=== PATIENT | female | born 1945 | race Caucasian/White ===

== ENCOUNTER 2018-03-02 08:25 | Emergency (ER) | payer OTHER, MEDICAID ==
[2018-03-02 13:15] LABS: ADD MAN DIFF? NO
[2018-03-02 13:17] LABS: BASOPHILS % 0.5 % (0.0-2.0); EOSINOPHILS # 0.7 10^3/ul (0.0-0.5); EOSINOPHILS % 10.4 % (0.0-7.0); HEMATOCRIT 41.8 % (37.0-47.0); HEMOGLOBIN 13.8 g/dl (12.0-16.0); LYMPHOCYTES # 3.1 10^3/ul (0.8-2.9); LYMPHOCYTES % 47.2 % (15.0-51.0); MEAN CORPUSCULAR HEMOGLOBIN 30.1 pg (29.0-33.0); MEAN CORPUSCULAR VOLUME 91.3 fl (82.0-101.0); MEAN PLATELET VOLUME 10.1 fl (7.4-10.4); MONOCYTE # 0.4 10^3/ul (0.3-0.9); MONOCYTES % 6.4 % (0.0-11.0); NEUTROPHIL # 2.3 10^3/ul (1.6-7.5); NEUTROPHILS % 35.3 % (39.0-77.0); PLATELET COUNT 193 10^3/UL (140-415); RED BLOOD COUNT 4.58 10^6/ul (4.20-5.40); RED CELL DISTRIBUTION WIDTH 12.5 % (11.5-14.5)
[2018-03-02 13:17] LABS: WHITE BLOOD COUNT 6.5 10^3/ul (4.8-10.8)
[2018-03-02 13:33] LABS: ALANINE AMINOTRANSFERASE 34 IU/L (13-69); ALBUMIN 4.5 g/dl (3.3-4.9); ALBUMIN/GLOBULIN RATIO 1.12; ALKALINE PHOSPHATASE 127 IU/L (42-121); ANION GAP 16 (8-16); ASPARTATE AMINO TRANSFERASE 21 IU/L (15-46); BILIRUBIN,INDIRECT 0.4 mg/dl (0-1.1); BILIRUBIN,TOTAL 0.4 mg/dl (0.2-1.3); BLOOD UREA NITROGEN 10 mg/dl (7-20); CALCIUM 9.6 mg/dl (8.4-10.2); CARBON DIOXIDE 26 mmol/L (21-31); CHLORIDE 109 mmol/L (97-110); CREATININE 0.57 mg/dl (0.44-1.00); GLUCOSE 89 mg/dl (70-220); LIPASE 82 U/L (23-300); POTASSIUM 3.9 mmol/L (3.5-5.1); SODIUM 147 mmol/L (135-144); TOTAL PROTEIN 8.5 g/dl (6.1-8.1)
[2018-03-02 13:35] LABS: ADD UMIC NO; UR ASCORBIC ACID NEGATIVE (NEGATIVE); UR BILIRUBIN (Dip) NEGATIVE (NEGATIVE); UR BLOOD (Dip) NEGATIVE (NEGATIVE); UR CLARITY CLEAR (CLEAR); UR COLOR YELLOW (YELLOW); UR GLUCOSE (Dip) NEGATIVE (NEGATIVE); UR KETONES (Dip) NEGATIVE (NEGATIVE); UR LEUKOCYTE ESTERASE (Dip) NEGATIVE Leu/ul (NEGATIVE); UR NITRITE (Dip) NEGATIVE (NEGATIVE); UR SPECIFIC GRAVITY (Dip) 1.013 (1.003-1.030); UR TOTAL PROTEIN (Dip) NEGATIVE (NEGATIVE); UR UROBILINOGEN (Dip) NEGATIVE (NEGATIVE)
[2018-03-02 13:36] LABS: INR 0.91; PROTIME 12.3 Sec (11.9-14.9)
[2018-03-02] MEDS: NA PHOSPHATE/BIPHOS 133 ML ENEMA PR (13:50)
[2018-03-02 14:25] LABS: OCCULT BLOOD STOOL NEGATIVE (NEGATIVE)
== END 2018-03-02 16:30 | disposition home or self-care (01) ==
LOC: E/R 08:25
DX: K59.00 Constipation, unspecified (principal); I10 Essential (primary) hypertension; I25.10 Atherosclerotic heart disease of native coronary artery without angina pectoris
CPT/HCPCS: 36415; 74018; 80053; 81003; 82270; 83690; 85025; 85610; 99284-25

== ENCOUNTER 2019-08-10 05:39 | Inpatient (IN) | payer OTHER ==
[2019-08-10] MEDS: LANSOPRAZOLE 30 MG CAP PO (06:38)
[2019-08-10] MEDS: DEXAMETHASONE 4 MG/ML 1 ML INJ IV (06:38)
[2019-08-10] MEDS: LACTATED RINGER'S 1,000 ML IV ×2 (06:38→18:08)
[2019-08-10] MEDS: ACETAMINOPHEN 500 MG TAB PO (06:39)
[2019-08-10] MEDS: ONDANSETRON 4 MG INJ IV ×4 (06:39→22:47)
[2019-08-10] MEDS: oxyCODONE (CR) 10 MG TAB [oxyCONTIN] PO (06:39)
[2019-08-10] MEDS ORDERED: TRANEXAMIC ACID 1GM/100ML(PMX) 100 ML ×2 (06:58)
[2019-08-10 07:14] LABS: ALANINE AMINOTRANSFERASE 23 IU/L (13-69); ALBUMIN/GLOBULIN RATIO 1.29; ALKALINE PHOSPHATASE 102 IU/L (42-121); ANION GAP 7 (5-13); ASPARTATE AMINO TRANSFERASE 26 IU/L (15-46); BILIRUBIN,INDIRECT 0.3 mg/dl (0-1.1); BILIRUBIN,TOTAL 0.3 mg/dl (0.2-1.3); BLOOD UREA NITROGEN 9 mg/dl (7-20); CALCIUM 9.4 mg/dl (8.4-10.2); CARBON DIOXIDE 26 mmol/L (21-31); CHLORIDE 111 mmol/L (97-110); CREATININE 0.55 mg/dl (0.44-1.00); GLUCOSE 108 mg/dl (70-220); POTASSIUM 4.4 mmol/L (3.5-5.1); SODIUM 144 mmol/L (135-144); TOTAL PROTEIN 7.1 g/dl (6.1-8.1)
[2019-08-10] MEDS ORDERED: CEFAZOLIN 1 GM INJ ×2 (07:23→08:05)
[2019-08-10] MEDS ORDERED: ROPIVACAINE 0.5 % 30 ML VIAL (07:23)
[2019-08-10] MEDS ORDERED: morphine SULFATE/PF (10 MG/10 ML) INJ (07:23)
[2019-08-10] MEDS ORDERED: MIDAZOLAM 1 MG/ML 2 ML INJ (07:23)
[2019-08-10] MEDS: CEFAZOLIN 1 GM/50 ML (PMX) 50 ML IVPB (07:45)
[2019-08-10] MEDS ORDERED: SUCCINYLCHOLINE CHLORIDE 100 MG/5 ML SYG IV (08:05)
[2019-08-10] MEDS ORDERED: METOCLOPRAMIDE 10 MG INJ (08:05)
[2019-08-10] MEDS ORDERED: ONDANSETRON 4 MG INJ (08:05)
[2019-08-10] MEDS ORDERED: PROPOFOL 100 ML (08:05)
[2019-08-10] MEDS ORDERED: DEXAMETHASONE 4 MG/ML 5 ML INJ (08:06)
[2019-08-10] MEDS: TRANEXAMIC ACID 1GM/100ML(PMX) 100 ML PRE-OP X1 IVPB (08:06)
[2019-08-10] MEDS: BACITRACIN 50000 UNITS INJ IRR (08:17)
[2019-08-10] MEDS: POLYMYXIN B 500000 UNIT INJ (08:17)
[2019-08-10] MEDS: TRANEXAMIC ACID 1GM/100ML(PMX) 100 ML INTRA-OP X1 IVPB ×2 (08:19→08:56)
[2019-08-10] MEDS ORDERED: EPHEDrine 25 MG/5 ML SYG (08:42)
[2019-08-10] MEDS ORDERED: morphine 2 MG INJ IV ×2 (09:00)
[2019-08-10] MEDS ORDERED: NALBUPHINE HCL (10 MG/1 ML) INJ IV (09:00)
[2019-08-10] MEDS ORDERED: EPHEDrine 25 MG/5 ML SYG IV (09:00)
[2019-08-10] MEDS ORDERED: HYDROCODONE/APAP (5/325) TAB PO (09:00)
[2019-08-10] MEDS ORDERED: hydrALAzine 20 MG INJ IV (09:00)
[2019-08-10] MEDS ORDERED: METOCLOPRAMIDE 10 MG INJ IV (09:00)
[2019-08-10] MEDS ORDERED: MEPERIDINE 25 MG INJ IV (09:00)
[2019-08-10] MEDS ORDERED: ACETAMINOPHEN 500 MG TAB PO (09:00)
[2019-08-10] MEDS ORDERED: HYDROmorphONE 1 MG/5 ML IV SYRINGE IV ×2 (09:00)
[2019-08-10] MEDS ORDERED: NALOXONE (0.4 MG/ML) INJ IV ×2 (09:00→10:00)
[2019-08-10] MEDS ORDERED: FENTAnyl 50 MCG/ML VIAL IV ×2 (09:00)
[2019-08-10] MEDS ORDERED: LABETALOL HCL 20MG INJ IV (09:00)
[2019-08-10] MEDS ORDERED: OXYCODONE/ACETAMINOPHEN (5/325) TAB PO (09:00)
[2019-08-10] MEDS ORDERED: DIPHENHYDRAMINE 50 MG INJ IV ×2 (09:00)
[2019-08-10] MEDS ORDERED: ONDANSETRON 4 MG INJ IV ×2 (09:00)
[2019-08-10] MEDS ORDERED: HYDROmorphONE 0.5 MG/0.5 ML SYG IV ×2 (09:00)
[2019-08-10] MEDS ORDERED: PHENYLephrine (100 MCG/ML) 10ML SYG (09:23)
[2019-08-10] MEDS: HETASTARCH 6% NACL 500 ML (09:40)
[2019-08-10] MEDS: PAIN COCKTAIL VANCO INJ (09:42)
[2019-08-10] MEDS ORDERED: BISACODYL 10 MG SUPP PR (10:00)
[2019-08-10] MEDS ORDERED: NA PHOSPHATE/BIPHOS 133 ML ENEMA PR (10:00)
[2019-08-10] MEDS ORDERED: NACL 0.9% 3 ML SYG IV (10:00)
[2019-08-10] MEDS ORDERED: MAGNESIUM HYDROXIDE 30ML CUP PO (10:00)
[2019-08-10] MEDS: DOCUSATE SODIUM 100 MG CAP PO (10:50)
[2019-08-10] MEDS: CEFAZOLIN 2 GM/50 ML (PMX) 50 ML IVPB ×2 (10:50→18:38)
[2019-08-10] MEDS: GABAPENTIN 100 MG CAP PO ×2 (13:30→22:01)
[2019-08-10] MEDS: ATORVASTATIN 20 MG TAB PO (22:01)
[2019-08-11] MEDS: CEFAZOLIN 2 GM/50 ML (PMX) 50 ML IVPB (02:18)
[2019-08-11] MEDS: ONDANSETRON 4 MG INJ IV (04:12)
[2019-08-11 05:13] LABS: ADD MAN DIFF? NO
[2019-08-11 05:15] LABS: HEMATOCRIT 31.2 % (37.0-47.0); HEMOGLOBIN 9.8 g/dl (12.0-16.0); LYMPHOCYTES % 10.5 % (15.0-51.0); MEAN CORPUSCULAR HEMOGLOBIN 29.7 pg (29.0-33.0); MEAN CORPUSCULAR HGB CONC 31.4 g/dl (32.0-37.0); MEAN CORPUSCULAR VOLUME 94.5 fl (82.0-101.0); MEAN PLATELET VOLUME 11.3 fl (7.4-10.4); MONOCYTE # 0.6 10^3/ul (0.3-0.9); MONOCYTES % 6.1 % (0.0-11.0); NEUTROPHIL # 7.8 10^3/ul (1.6-7.5); PLATELET COUNT 152 10^3/UL (140-415); RED CELL DISTRIBUTION WIDTH 13.2 % (11.5-14.5)
[2019-08-11 05:15] LABS: WHITE BLOOD COUNT 9.4 10^3/ul (4.8-10.8)
[2019-08-11 05:32] LABS: CHOLESTEROL 145 mg/dl (100-200)
[2019-08-11 05:32] LABS: CHOL/HDL RATIO 2.9 RATIO; HDL CHOLESTEROL 50 mg/dl (33-92); LDL CHOLESTEROL,CALCULATED 74 mg/dl; TRIGLYCERIDES 105 mg/dl (0-149)
[2019-08-11 05:36] LABS: ANION GAP 4 (5-13); BLOOD UREA NITROGEN 14 mg/dl (7-20); CALCIUM 8.4 mg/dl (8.4-10.2); CARBON DIOXIDE 26 mmol/L (21-31); CHLORIDE 109 mmol/L (97-110); CREATININE 0.57 mg/dl (0.44-1.00); GLUCOSE 143 mg/dl (70-220); POTASSIUM 4.3 mmol/L (3.5-5.1); SODIUM 139 mmol/L (135-144)
[2019-08-11 05:53] LABS: FREE THYROXINE INDEX (Calc) 2.46 ug/ml (0.65-3.89); T3 UPTAKE 35.2 % (23.5-40.5)
[2019-08-11] MEDS: LEVOTHYROXINE 125 MCG TAB PO (06:19)
[2019-08-11] MEDS: PANTOPRAZOLE (EC) 40 MG TAB PO (06:19)
[2019-08-11] MEDS: ASPIRIN (EC) 81 MG TAB PO ×2 (08:51→20:18)
[2019-08-11] MEDS: SENNA/DOCUSATE NA (8.6MG/50MG) TAB PO (08:51)
[2019-08-11] MEDS: GABAPENTIN 100 MG CAP PO ×3 (08:51→20:18)
[2019-08-11] MEDS: CELECOXIB 100 MG CAP PO ×2 (08:52→20:18)
[2019-08-11] MEDS: DOCUSATE SODIUM 100 MG CAP PO ×2 (08:52→20:18)
[2019-08-11] MEDS: oxyCODONE 5 MG TAB PO (08:53)
[2019-08-11] MEDS: HYDROCHLOROTHIAZIDE 12.5 MG CAP PO (08:56)
[2019-08-11] MEDS: LOSARTAN 50 MG TAB PO (13:12)
[2019-08-11] MEDS: LISINOPRIL 10 MG TAB PO (13:12)
[2019-08-11] MEDS: KETOROLAC 15 MG INJ IV (14:39)
[2019-08-11] MEDS: ATORVASTATIN 20 MG TAB PO (20:18)
[2019-08-12 05:02] LABS: ADD MAN DIFF? NO
[2019-08-12 05:08] LABS: BASOPHILS % 0.3 % (0.0-2.0); EOSINOPHILS # 0.2 10^3/ul (0.0-0.5); EOSINOPHILS % 2.5 % (0.0-7.0); HEMATOCRIT 31.2 % (37.0-47.0); HEMOGLOBIN 9.7 g/dl (12.0-16.0); LYMPHOCYTES # 2.1 10^3/ul (0.8-2.9); LYMPHOCYTES % 29.7 % (15.0-51.0); MEAN CORPUSCULAR HEMOGLOBIN 29.7 pg (29.0-33.0); MEAN CORPUSCULAR HGB CONC 31.1 g/dl (32.0-37.0); MEAN CORPUSCULAR VOLUME 95.4 fl (82.0-101.0); MEAN PLATELET VOLUME 11.2 fl (7.4-10.4); MONOCYTE # 0.6 10^3/ul (0.3-0.9); MONOCYTES % 8.3 % (0.0-11.0); NEUTROPHIL # 4.3 10^3/ul (1.6-7.5); NEUTROPHILS % 58.9 % (39.0-77.0); PLATELET COUNT 137 10^3/UL (140-415); RED BLOOD COUNT 3.27 10^6/ul (4.20-5.40); RED CELL DISTRIBUTION WIDTH 13.5 % (11.5-14.5)
[2019-08-12 05:08] LABS: WHITE BLOOD COUNT 7.2 10^3/ul (4.8-10.8)
[2019-08-12] MEDS: LEVOTHYROXINE 125 MCG TAB PO ×2 (05:21→08:51)
[2019-08-12] MEDS: PANTOPRAZOLE (EC) 40 MG TAB PO ×2 (05:21→05:26)
[2019-08-12 05:24] LABS: ANION GAP 1 (5-13); BLOOD UREA NITROGEN 16 mg/dl (7-20); CALCIUM 8.7 mg/dl (8.4-10.2); CARBON DIOXIDE 30 mmol/L (21-31); CHLORIDE 108 mmol/L (97-110); CREATININE 0.75 mg/dl (0.44-1.00); GLUCOSE 97 mg/dl (70-220); POTASSIUM 3.8 mmol/L (3.5-5.1); SODIUM 139 mmol/L (135-144)
[2019-08-12] MEDS: KETOROLAC 15 MG INJ IV (05:25)
[2019-08-12] MEDS: DOCUSATE SODIUM 100 MG CAP PO (08:51)
[2019-08-12] MEDS: GABAPENTIN 100 MG CAP PO ×2 (08:51→12:56)
[2019-08-12] MEDS: CELECOXIB 100 MG CAP PO (08:51)
[2019-08-12] MEDS: ASPIRIN (EC) 81 MG TAB PO (08:51)
[2019-08-12] MEDS: LISINOPRIL 10 MG TAB PO (08:53)
[2019-08-12] MEDS: LOSARTAN 50 MG TAB PO (08:54)
[2019-08-12] MEDS: HYDROCHLOROTHIAZIDE 12.5 MG CAP PO (08:55)
[2019-08-12] MEDS: oxyCODONE 5 MG TAB PO (12:56)
== END 2019-08-12 17:45 | DRG 470 ==
LOC: REC 05:39 → MS1 11:22
PROC: 0SRD0J9 Replacement of Left Knee Joint with Synthetic Substitute, Cemented, Open Approach (ICD-10-PCS; principal; 2019-08-10 07:30)
DX: M17.12 Unilateral primary osteoarthritis, left knee (principal); E66.9 Obesity, unspecified; I10 Essential (primary) hypertension; E78.5 Hyperlipidemia, unspecified; E03.9 Hypothyroidism, unspecified; I25.10 Atherosclerotic heart disease of native coronary artery without angina pectoris
CPT/HCPCS: 73560; 80048; 80053; 80061; 83036; 84436; 84443; 84479; 85025; 88304; 88311; 97116; 97162; 97530